=== PATIENT | male | born 1975 | race Hispanic/Latino ===

== ENCOUNTER 2021-05-31 05:07 | Emergency (ER) | payer OTHER ==
[~2021-05-31] VITALS: Ht 180.3 cm; Wt 81.6 kg
[2021-05-31 05:29] LABS: BASOPHILS % (AUTO) 0.3 % (0.0-5.0); HEMATOCRIT 52.4 % (42-54); MEAN CORPUSCULAR HEMOGLOBIN 29.8 pg (27.0-33.0); MEAN CORPUSCULAR HGB CONC 33.4 g/dL (32.0-36.0); MEAN CORPUSCULAR VOLUME 89.1 fL (79-99); MONOCYTES % (AUTO) 9.6 % (3.0-13.0); NEUTROPHILS % (AUTO) 72.6 % (40.0-77.0); PLATELET COUNT (AUTO) 334 K/uL (130-400); RED BLOOD CELL COUNT(AUTO) 5.88 MIL/uL (4.50-6.20); RED CELL DISTRIBUTION WIDTH 11.9 % (11.0-15.5); WHITE BLOOD COUNT (AUTO) 10.7 K/uL (4.8-10.8)
[2021-05-31 05:40] LABS: CREATININE 1.1 mg/dL (0.5-1.5); POTASSIUM 3.9 mmol/L (3.5-5.1)
[2021-05-31 05:44] LABS: ALBUMIN 3.4 g/dL (3.5-5.0); BILIRUBIN,TOTAL 0.2 mg/dL (0.2-1.0); TOTAL PROTEIN, SERUM 7.7 g/dL (6.0-8.3)
[2021-05-31] MEDS ORDERED: ONDANSETRON 4MG INJ ONE (05:57)
[2021-05-31] MEDS ORDERED: FAMOTIDINE 20MG VIAL IV ONE ×2 (05:57→06:00)
[2021-05-31] MEDS ORDERED: MORPHINE 2 MG SYG ONE (05:57)
[2021-05-31] MEDS ORDERED: 0.9%NACL 1000ML 1,000 ML IV ONE ×2 (05:58→06:40)
[2021-05-31] MEDS ORDERED: ONDANSETRON 4MG INJ IVP ONE (06:00)
[2021-05-31] MEDS ORDERED: MORPHINE 2 MG SYG IVP ONE (06:00)
[2021-05-31] MEDS ORDERED: METOCLOPRAMIDE 10 MG/2 ML VIAL ONE (06:39)
[2021-05-31] MEDS ORDERED: ONDA4TAB10 PO (07:48)
[2021-05-31 08:35] VITALS: BP 123/89
[2021-05-31] MEDS ORDERED: L.AC1CAP6 PO (15:21)
[2021-05-31] MEDS ORDERED: DICY20TA2 PO (15:21)
[2021-05-31] MEDS ORDERED: FAMO-136 PO (15:21)
== END 2021-05-31 08:36 | disposition home or self-care (01) ==
LOC: EDH 05:07
DX: K52.9 Noninfective gastroenteritis and colitis, unspecified (principal); E86.9 Volume depletion, unspecified; E11.9 Type 2 diabetes mellitus without complications; E78.00 Pure hypercholesterolemia, unspecified; I10 Essential (primary) hypertension
CPT/HCPCS: 36415; 76705; 80053; 83690; 85025; 96361; 96374; 96375; 99285; J2405; J2765; J3490; J7030 ×2

== ENCOUNTER 2021-05-31 13:57 | Emergency (ER) | payer OTHER ==
[~2021-05-31] VITALS: Ht 180.3 cm; Wt 81.6 kg
[~2021-05-31 13:57] MED LIST: ONDA4TAB10 PO
[2021-05-31] MEDS ORDERED: PANTOPRAZOLE 40 MG/VIAL IVP ONE (14:30)
[2021-05-31] MEDS ORDERED: MORPHINE 4 MG SYG IVP ONE (14:30)
[2021-05-31] MEDS ORDERED: ONDANSETRON 4MG INJ IVP ONE (14:30)
[2021-05-31] MEDS ORDERED: KETOROLAC 15MG/ML VIAL (15MG/ML) IV ONE (14:30)
[2021-05-31] MEDS ORDERED: 0.9%NACL 1000ML 1,000 ML IV ONE (14:30)
[2021-05-31] MEDS ORDERED: IOHEXOL-350 75 ML VIAL IV ONE (14:31)
[2021-05-31] MEDS ORDERED: L.AC1CAP6 PO (15:21)
[2021-05-31] MEDS ORDERED: DICY20TA2 PO (15:21)
[2021-05-31] MEDS ORDERED: LIDOCAINE HCL 2% VISCOUS 15 ML UDCUP ONE (15:21)
[2021-05-31] MEDS ORDERED: FAMO-136 PO (15:21)
[2021-05-31] MEDS ORDERED: MAG/ALUM/SIMETH 30 ML UDCUP ONE (15:21)
[2021-05-31 15:24] VITALS: BP 150/109
[2021-05-31] MEDS ORDERED: MAG/ALUM/SIMETH 30 ML UDCUP PO ONE (15:30)
== END 2021-05-31 15:39 | disposition home or self-care (01) ==
LOC: EDH 13:57
DX: K52.9 Noninfective gastroenteritis and colitis, unspecified (principal); E11.9 Type 2 diabetes mellitus without complications; E78.00 Pure hypercholesterolemia, unspecified; I10 Essential (primary) hypertension; Z79.1 Long term (current) use of non-steroidal anti-inflammatories (NSAID)
CPT/HCPCS: 74177; 96374; 96375; 99285; C9113; J1885; J2270; J2405; J7030; Q9967

== ENCOUNTER 2021-06-02 10:17 | Inpatient (IN) | payer OTHER ==
[~2021-06-02] VITALS: Ht 180.3 cm; Wt 81.9 kg
[~2021-06-02 10:17] MED LIST changes: +DICY20TA2 PO; +FAMO-136 PO; +L.AC1CAP6 PO
[2021-06-02] MEDS ORDERED: ONDANSETRON 4MG INJ IVP ONE ×2 (10:30→14:00)
[2021-06-02] MEDS ORDERED: LACTATED RINGERS 1000ML 1,000 ML IV ONE ×2 (10:30→10:38)
[2021-06-02] MEDS ORDERED: PANTOPRAZOLE 40 MG/VIAL IVP ONE ×2 (10:30→14:30)
[2021-06-02 10:38] LABS: BASOPHILS % (AUTO) 0.6 % (0.0-5.0); HEMATOCRIT 47.2 % (42-54); LYMPHOCYTES % (AUTO) 7.4 % (21.0-51.0); MEAN CORPUSCULAR HEMOGLOBIN 30.8 pg (27.0-33.0); MEAN CORPUSCULAR HGB CONC 34.5 g/dL (32.0-36.0); MEAN CORPUSCULAR VOLUME 89.2 fL (79-99); MONOCYTES % (AUTO) 8.8 % (3.0-13.0); NEUTROPHILS % (AUTO) 81.5 % (40.0-77.0); PLATELET COUNT (AUTO) 261 K/uL (130-400); RED BLOOD CELL COUNT(AUTO) 5.29 MIL/uL (4.50-6.20); RED CELL DISTRIBUTION WIDTH 11.9 % (11.0-15.5); WHITE BLOOD COUNT (AUTO) 21.8 K/uL (4.8-10.8)
[2021-06-02] MEDS ORDERED: PANTOPRAZOLE 40 MG/VIAL ONE (10:38)
[2021-06-02] MEDS ORDERED: ONDANSETRON 4MG INJ ONE (10:38)
[2021-06-02] MEDS ORDERED: KETOROLAC 30MG VIAL (30MG/ML) ONE (10:51)
[2021-06-02 10:54] LABS: CREATININE 0.8 mg/dL (0.5-1.5); POTASSIUM 3.5 mmol/L (3.5-5.1)
[2021-06-02 10:58] LABS: ALBUMIN 2.8 g/dL (3.5-5.0); BILIRUBIN,TOTAL 0.5 mg/dL (0.2-1.0); TOTAL PROTEIN, SERUM 6.8 g/dL (6.0-8.3)
[2021-06-02] MEDS ORDERED: KETOROLAC 30MG VIAL (30MG/ML) IVP ONE (11:00)
[2021-06-02] MEDS ORDERED: CEFTRIAXONE 2GM VIAL IVP ONE (12:30)
[2021-06-02] MEDS ORDERED: IOHEXOL-350 75 ML VIAL IV ONE (12:41)
[2021-06-02] MEDS ORDERED: MORPHINE 2 MG SYG IVP ONE (14:00)
[2021-06-02 14:25] LABS: APPEARANCE,URINE Clear (CLEAR); BILIRUBIN,URINE Negative (NEGATIVE); COLOR,URINE Yellow (YELLOW); GLUCOSE, URINE (UA) 500 mg/dL (NEGATIVE); KETONES,URINE >=80 mg/dL (NEGATIVE); LEUKOCYTE ESTERASE ,URINE Negative (NEGATIVE); NITRATE,URINE Negative (NEGATIVE); OCCULT BLOOD,URINE Negative (NEGATIVE); PROTEIN,URINE Trace mg/dL (NEGATIVE); UROBILINOGEN,URINE 0.2 mg/dL (0.2-1.0)
[2021-06-02 14:33] LABS: AMPHET/METH SCREEN,URINE NEGATIVE (NEGATIVE); BARBITURATE SCREEN, URINE NEGATIVE (NEGATIVE); BENZODIAZEPINES SCREEN,URINE NEGATIVE (NEGATIVE); CANNABINOID SCREEN,URINE NEGATIVE (NEGATIVE); COCAINE SCREEN,URINE POSITIVE (NEGATIVE); OPIATE SCREEN,URINE NEGATIVE (NEGATIVE); PHENCYCLIDINE SCREEN,URINE NEGATIVE (NEGATIVE)
[2021-06-02 14:43] LABS: BACTERIA,URINE Rare /HPF (None Seen); COARSE GRANULAR CASTS,URINE 0-2 /LPF (None Seen); MUCUS,URINE Rare LPF (None Seen); RBC,URINE 0-1 /HPF (0-1); SQUAMOUS EPITHELIAL CELL,UR Rare /HPF (0-2); WBC,URINE 0-1 /HPF (0-1)
[2021-06-02 15:10] LABS: HEMOGLOBIN A1C 7.7 % (4.0-6.0)
[2021-06-02] MEDS: HYDROMORPHONE 0.5 MG SYG (0.5MG/0.5ML) IVP PRN (15:52)
[2021-06-02] MEDS: LACTATED RINGERS 1000ML 1,000 ML IV SCH (15:52)
[2021-06-02] MEDS: ZOSYN 3.375GM +NS 50ML IV SCH ×2 (15:52→22:30)
[2021-06-02] MEDS ORDERED: HYDRALAZINE 20MG/ML VIAL ONE (16:28)
[2021-06-02] MEDS ORDERED: HYDRALAZINE 20MG/ML VIAL IV PRN ×2 (16:30)
[2021-06-02] MEDS ORDERED: [UNRECOGNIZED DRUG - REMARK] MISC SCH (16:30)
[2021-06-02] MEDS ORDERED: KETOROLAC 15MG/ML VIAL (15MG/ML) ONE (16:42)
[2021-06-02] MEDS: INSULIN HUMULIN R 100 UNIT/ML 3ML SQ SCH (19:00)
[2021-06-02 19:39] LABS: CREATININE 0.7 mg/dL (0.5-1.5); MAGNESIUM 2.2 mg/dL (1.80-2.40); POTASSIUM 3.1 mmol/L (3.5-5.1)
[2021-06-02] MEDS: PANTOPRAZOLE 40 MG/VIAL IVP SCH (20:49)
[2021-06-02] MEDS: KETOROLAC 15MG/ML VIAL (15MG/ML) IV PRN (22:07)
[2021-06-03] VITALS (8 sets, daily range): BP systolic 110–180; BP diastolic 73–118
[2021-06-03] MEDS: LACTATED RINGERS 1000ML 1,000 ML IV SCH ×3 (00:30→20:30)
[2021-06-03] MEDS ORDERED: 0.9%NACL 50ML 50 ML IV ONE (00:34)
[2021-06-03] MEDS: ZOSYN 3.375GM +NS 50ML IV SCH ×2 (00:47→09:18)
[2021-06-03] MEDS: INSULIN HUMULIN R 100 UNIT/ML 3ML SQ SCH ×5 (01:00→23:42)
[2021-06-03] MEDS ORDERED: HYDRALAZINE 20MG/ML VIAL IV ONE ×2 (01:30→02:30)
[2021-06-03] MEDS: HYDROMORPHONE 0.5 MG SYG (0.5MG/0.5ML) IVP PRN ×4 (02:01→23:47)
[2021-06-03] MEDS: KETOROLAC 15MG/ML VIAL (15MG/ML) IV PRN ×4 (03:54→19:37)
[2021-06-03] MEDS: POTASSIUM CHLORIDE 20MEQ/100ML 100 ML IV PRN ×3 (04:32→16:24)
[2021-06-03 06:22] LABS: BASOPHILS % (AUTO) 0.5 % (0.0-5.0); EOSINOPHILS % (AUTO) 0.9 % (0.0-8.0); HEMATOCRIT 42.5 % (42-54); LYMPHOCYTES % (AUTO) 13.5 % (21.0-51.0); MEAN CORPUSCULAR HGB CONC 34.1 g/dL (32.0-36.0); MONOCYTES % (AUTO) 7.6 % (3.0-13.0); NEUTROPHILS % (AUTO) 75.4 % (40.0-77.0); PLATELET COUNT (AUTO) 253 K/uL (130-400); RED BLOOD CELL COUNT(AUTO) 4.83 MIL/uL (4.50-6.20); WHITE BLOOD COUNT (AUTO) 23.9 K/uL (4.8-10.8)
[2021-06-03 06:35] LABS: ALBUMIN 2.1 g/dL (3.5-5.0); BILIRUBIN,TOTAL 0.5 mg/dL (0.2-1.0); CREATININE 0.6 mg/dL (0.5-1.5); MAGNESIUM 2.2 mg/dL (1.80-2.40); POTASSIUM 3.3 mmol/L (3.5-5.1); TOTAL PROTEIN, SERUM 6.3 g/dL (6.0-8.3)
[2021-06-03] MEDS ORDERED: THIAMINE HCL 100 MG/ML 2ML VIAL IVP SCH (09:00)
[2021-06-03] MEDS: THIAMINE HCL 100 MG/ML 2ML VIAL IVP SCH (09:18)
[2021-06-03] MEDS: PANTOPRAZOLE 40 MG/VIAL IVP SCH ×2 (09:19→19:30)
[2021-06-03] MEDS: METRONIDAZOLE 500MG/100ML BAG 100 ML IVPB SCH ×2 (16:23→19:30)
[2021-06-03] MEDS: ENALAPRILAT DIHYDRATE 1.25MG/ML 1ML VIAL IV PRN ×2 (18:14→23:47)
[2021-06-04] MEDS: KETOROLAC 15MG/ML VIAL (15MG/ML) IV PRN ×4 (01:32→15:44)
[2021-06-04 03:25] VITALS: BP 144/96
[2021-06-04] MEDS: METRONIDAZOLE 500MG/100ML BAG 100 ML IVPB SCH ×2 (05:36→13:16)
[2021-06-04] MEDS: LACTATED RINGERS 1000ML 1,000 ML IV SCH ×3 (05:36→21:57)
[2021-06-04] MEDS: INSULIN HUMULIN R 100 UNIT/ML 3ML SQ SCH ×3 (05:53→18:17)
[2021-06-04 06:45] LABS: BASOPHILS % (AUTO) 0.5 % (0.0-5.0); EOSINOPHILS % (AUTO) 1.5 % (0.0-8.0); HEMATOCRIT 41.3 % (42-54); LYMPHOCYTES % (AUTO) 15.1 % (21.0-51.0); MEAN CORPUSCULAR HGB CONC 33.2 g/dL (32.0-36.0); MEAN CORPUSCULAR VOLUME 90.6 fL (79-99); MONOCYTES % (AUTO) 7.2 % (3.0-13.0); NEUTROPHILS % (AUTO) 73.3 % (40.0-77.0); PLATELET COUNT (AUTO) 309 K/uL (130-400); RED BLOOD CELL COUNT(AUTO) 4.56 MIL/uL (4.50-6.20); RED CELL DISTRIBUTION WIDTH 12.2 % (11.0-15.5); WHITE BLOOD COUNT (AUTO) 22.3 K/uL (4.8-10.8)
[2021-06-04 06:57] LABS: ALBUMIN 2.1 g/dL (3.5-5.0); BILIRUBIN,TOTAL 0.3 mg/dL (0.2-1.0); CREATININE 0.6 mg/dL (0.5-1.5); MAGNESIUM 2.5 mg/dL (1.80-2.40); POTASSIUM 3.1 mmol/L (3.5-5.1); TOTAL PROTEIN, SERUM 6.4 g/dL (6.0-8.3)
[2021-06-04] MEDS ORDERED: LIDOCAINE HCL-MPF 1% 2ML VIAL ONE (08:26)
[2021-06-04] MEDS ORDERED: POTASSIUM CHLORIDE 20MEQ/100ML 100 ML IV PRN (08:30)
[2021-06-04] MEDS: PANTOPRAZOLE 40 MG/VIAL IVP SCH ×2 (08:34→21:57)
[2021-06-04] MEDS: THIAMINE HCL 100 MG/ML 2ML VIAL IVP SCH (08:35)
[2021-06-04] MEDS: POTASSIUM CHLORIDE 20MEQ/100ML 100 ML IV PRN ×2 (08:39→13:16)
[2021-06-04 09:54] VITALS: BP 155/111
[2021-06-04 12:00] VITALS: BP 151/109
[2021-06-04] MEDS: LIDOCAINE HCL-MPF 1% 2ML VIAL IV PRN (13:15)
[2021-06-04 16:00] VITALS: BP 191/118
[2021-06-04] MEDS ORDERED: MORPHINE 2 MG SYG ONE (16:28)
[2021-06-04] MEDS ORDERED: MORPHINE 2 MG SYG IV ONE (17:00)
[2021-06-04] MEDS ORDERED: IOHEXOL 350 MG/ML 100ML INFUS..BTL IV ONE (18:25)
[2021-06-04] MEDS ORDERED: KETOROLAC 30MG VIAL (30MG/ML) IV ONE (18:30)
[2021-06-04] MEDS ORDERED: HYDROMORPHONE 0.5 MG SYG (0.5MG/0.5ML) IVP ONE (18:30)
[2021-06-04] MEDS ORDERED: KETOROLAC 15MG/ML VIAL (15MG/ML) IV ONE (19:00)
[2021-06-04 19:48] VITALS: BP 196/123
[2021-06-04] MEDS: HYDRALAZINE 25MG TABLET PO SCH (21:00)
[2021-06-04] MEDS: ENALAPRILAT DIHYDRATE 1.25MG/ML 1ML VIAL IV PRN (21:57)
[2021-06-04] MEDS: MORPHINE 2 MG SYG IVP PRN (21:57)
[2021-06-04] MEDS: ONDANSETRON 4MG INJ IVP PRN (21:58)
[2021-06-04] MEDS ORDERED: METRONIDAZOLE 500 MG TABLET PO SCH (22:00)
[2021-06-04 23:34] VITALS: BP 159/107
[2021-06-05] MEDS: INSULIN HUMULIN R 100 UNIT/ML 3ML SQ SCH ×4 (00:05→17:12)
[2021-06-05] MEDS ORDERED: METRONIDAZOLE 500MG/100ML BAG 100 ML ONE (03:33)
[2021-06-05] MEDS: KETOROLAC 15MG/ML VIAL (15MG/ML) IV PRN ×3 (03:40→16:18)
[2021-06-05 03:47] VITALS: BP 153/96
[2021-06-05 04:15] LABS: BASOPHILS % (AUTO) 0.5 % (0.0-5.0); EOSINOPHILS % (AUTO) 1.6 % (0.0-8.0); HEMATOCRIT 38.5 % (42-54); LYMPHOCYTES % (AUTO) 13.9 % (21.0-51.0); MEAN CORPUSCULAR HEMOGLOBIN 30.5 pg (27.0-33.0); MEAN CORPUSCULAR VOLUME 89.5 fL (79-99); MONOCYTES % (AUTO) 8.1 % (3.0-13.0); PLATELET COUNT (AUTO) 330 K/uL (130-400); RED CELL DISTRIBUTION WIDTH 12.2 % (11.0-15.5); WHITE BLOOD COUNT (AUTO) 17.1 K/uL (4.8-10.8)
[2021-06-05] MEDS: METRONIDAZOLE 500MG/100ML BAG 100 ML IVPB SCH ×3 (04:23→21:19)
[2021-06-05 04:32] LABS: ALBUMIN 2.1 g/dL (3.5-5.0); BILIRUBIN,TOTAL 0.3 mg/dL (0.2-1.0); CREATININE 0.7 mg/dL (0.5-1.5); MAGNESIUM 2.2 mg/dL (1.80-2.40); TOTAL PROTEIN, SERUM 6.4 g/dL (6.0-8.3)
[2021-06-05] MEDS: LIDOCAINE HCL-MPF 1% 2ML VIAL IV PRN ×2 (06:31→20:43)
[2021-06-05] MEDS: POTASSIUM CHLORIDE 20MEQ/100ML 100 ML IV PRN ×2 (06:32→20:43)
[2021-06-05 07:30] VITALS: BP 147/84
[2021-06-05] MEDS: LEVOFLOXACIN 500 MG/D5W 100 ML 100 ML IV SCH (10:22)
[2021-06-05] MEDS: PANTOPRAZOLE 40 MG/VIAL IVP SCH ×2 (10:23→20:41)
[2021-06-05] MEDS: THIAMINE HCL 100 MG/ML 2ML VIAL IVP SCH (10:23)
[2021-06-05] MEDS: LACTATED RINGERS 1000ML 1,000 ML IV SCH ×2 (10:23→16:42)
[2021-06-05] MEDS: HYDRALAZINE 25MG TABLET PO SCH ×3 (10:24→20:44)
[2021-06-05 11:00] VITALS: BP 167/110
[2021-06-05] MEDS: MORPHINE 2 MG SYG IVP PRN ×2 (13:03→20:42)
[2021-06-05] MEDS ORDERED: METR-172 PO (13:04)
[2021-06-05] MEDS ORDERED: LEVO500T90 PO (13:04)
[2021-06-05 16:00] VITALS: BP 194/126
[2021-06-05] MEDS: ENALAPRILAT DIHYDRATE 1.25MG/ML 1ML VIAL IV PRN (17:06)
[2021-06-05 20:08] VITALS: BP 175/111
[2021-06-05] MEDS: ONDANSETRON 4MG INJ IVP PRN (20:41)
[2021-06-05 22:20] VITALS: BP 152/102
[2021-06-06 00:08] VITALS: BP 162/92
[2021-06-06] MEDS: INSULIN HUMULIN R 100 UNIT/ML 3ML SQ SCH ×4 (00:20→16:10)
[2021-06-06] MEDS: LACTATED RINGERS 1000ML 1,000 ML IV SCH ×2 (00:20→08:52)
[2021-06-06 03:48] LABS: HEMATOCRIT 36.1 % (42-54); MEAN CORPUSCULAR HEMOGLOBIN 30.4 pg (27.0-33.0); MEAN CORPUSCULAR HGB CONC 34.1 g/dL (32.0-36.0); MEAN CORPUSCULAR VOLUME 89.4 fL (79-99); RED BLOOD CELL COUNT(AUTO) 4.04 MIL/uL (4.50-6.20); RED CELL DISTRIBUTION WIDTH 12.1 % (11.0-15.5); WHITE BLOOD COUNT (AUTO) 9.7 K/uL (4.8-10.8)
[2021-06-06 04:04] LABS: BILIRUBIN,TOTAL 0.2 mg/dL (0.2-1.0); CREATININE 0.7 mg/dL (0.5-1.5); POTASSIUM 3.2 mmol/L (3.5-5.1); TOTAL PROTEIN, SERUM 6.1 g/dL (6.0-8.3)
[2021-06-06 04:08] VITALS: BP 149/95
[2021-06-06] MEDS: METRONIDAZOLE 500MG/100ML BAG 100 ML IVPB SCH ×2 (05:10→14:03)
[2021-06-06] MEDS: POTASSIUM CHLORIDE 20MEQ/100ML 100 ML IV PRN (05:16)
[2021-06-06] MEDS: LIDOCAINE HCL-MPF 1% 2ML VIAL IV PRN (05:16)
[2021-06-06] MEDS: KETOROLAC 15MG/ML VIAL (15MG/ML) IV PRN ×2 (05:24→16:02)
[2021-06-06 08:00] VITALS: BP 147/101
[2021-06-06] MEDS: PANTOPRAZOLE 40 MG/VIAL IVP SCH (08:48)
[2021-06-06] MEDS: THIAMINE HCL 100 MG/ML 2ML VIAL IVP SCH (08:49)
[2021-06-06] MEDS: HYDRALAZINE 25MG TABLET PO SCH ×2 (08:50→14:04)
[2021-06-06] MEDS: LEVOFLOXACIN 500 MG/D5W 100 ML 100 ML IV SCH (08:50)
[2021-06-06] MEDS: MORPHINE 2 MG SYG IVP PRN (08:59)
[2021-06-06 12:03] VITALS: BP 160/104
[2021-06-06 16:00] VITALS: BP 174/115
== END 2021-06-06 17:45 | disposition home or self-care (01) | DRG 389 ==
LOC: EDH 10:17 → EDHIP 10:18 → 3AH 16:06 → EDHIP 19:33 → 4CH 06-03 01:19
PROVIDERS: ADMIT Internal Medicine; ATTEND Internal Medicine
PROC: 0D9670Z Drainage of Stomach with Drainage Device, Via Natural or Artificial Opening (ICD-10-PCS; principal; 2021-06-02)
DX: K56.609 Unspecified intestinal obstruction, unspecified as to partial versus complete obstruction (principal); E87.1 Hypo-osmolality and hyponatremia; K52.9 Noninfective gastroenteritis and colitis, unspecified; E87.6 Hypokalemia; E87.8 Other disorders of electrolyte and fluid balance, not elsewhere classified; Z20.822 Contact with and (suspected) exposure to COVID-19; I16.0 Hypertensive urgency; I10 Essential (primary) hypertension; E86.1 Hypovolemia; E78.5 Hyperlipidemia, unspecified; E11.9 Type 2 diabetes mellitus without complications; E78.00 Pure hypercholesterolemia, unspecified; F14.10 Cocaine abuse, uncomplicated
CPT/HCPCS: 36415; 74018; 74021; 74174; 74177; 80048; 80053; 80305; 81001; 82150; 82948; 83036; 83605; 83630; 83690; 83735; 84132; 84145; 84443; 84484; 85025; 85027; 85651; 86140; 87040; 87046; 87177; 87507; 87635; 87804; 93005; C9113; G0378; J0360; J0696; J1170; J1885; J1956; J2405; J2543; J3411; J3480; J3490; J7120; Q9967

== ENCOUNTER 2023-03-25 13:08 | Emergency (ER) | payer OTHER ==
[~2023-03-25] VITALS: Ht 177.8 cm; Wt 82.6 kg
[~2023-03-25 13:08] MED LIST changes: +LEVO-70 PO; +METR-172 PO
[2023-03-25 13:54] LABS: BASOPHILS # (AUTO) 0.03 K/uL (0.00-0.20); BASOPHILS % (AUTO) 0.3 % (0.0-5.0); EOSINOPHILS # (AUTO) 0.28 K/uL (0.00-0.70); HEMATOCRIT 51.6 % (42-54); IMMATURE GRANULOCYTE ABSOLUTE 0.03 K/uL (0-1); LYMPHOCYTES # (AUTO) 1.7 K/uL (1.0-4.8); MEAN CORPUSCULAR HEMOGLOBIN 29.7 pg (27.0-33.0); MEAN CORPUSCULAR HGB CONC 34.3 g/dL (32.0-36.0); MEAN CORPUSCULAR VOLUME 86.6 fL (79-99); MONOCYTES # (AUTO) 0.7 K/uL (0.1-1.0); NEUTROPHILS # (AUTO) 6.5 K/uL (1.8-7.7); NEUTROPHILS % (AUTO) 70.4 % (40.0-77.0); PLATELET COUNT (AUTO) 278 K/uL (130-400); RED BLOOD CELL COUNT(AUTO) 5.96 MIL/uL (4.50-6.20); RED CELL DISTRIBUTION WIDTH 11.8 % (11.0-15.5); WHITE BLOOD COUNT (AUTO) 9.2 K/uL (4.8-10.8)
[2023-03-25 14:03] LABS: POTASSIUM 3.7 mmol/L (3.5-5.1)
[2023-03-25 14:08] LABS: ALBUMIN 4.1 g/dL (3.5-5.0); BILIRUBIN,TOTAL 0.4 mg/dL (0.2-1.0); MAGNESIUM 1.6 mg/dL (1.80-2.40); TOTAL PROTEIN, SERUM 8.4 g/dL (6.0-8.3)
[2023-03-25 14:24] LABS: B-TYPE NATRIURETIC PEPTIDE < 5 pg/mL (0-100)
[2023-03-25 15:30] LABS: RAPID GROUP A STREP negative (NEGATIVE)
[2023-03-25 15:32] LABS: SARS-CoV-2, RNA, NAAT NEGATIVE SARS CoV-2 (NEGATIVE)
[2023-03-25 15:40] LABS: INFLUENZA TYPE A Negative For Type A (NEGATIVE); INFLUENZA TYPE B Negative For Type B (NEGATIVE)
[2023-03-25] MEDS ORDERED: MAGN300C PO (16:45)
[2023-03-25] MEDS ORDERED: FUROSEMIDE 80 MG TABLET PO ONE (17:00)
[2023-03-25] MEDS ORDERED: FUROSEMIDE 40 MG TABLET ONE (17:01)
[2023-03-25 18:07] VITALS: BP 159/110; PULSE 95; RESP 18; O2SAT 99
== END 2023-03-25 18:08 | disposition home or self-care (01) ==
LOC: EDH 13:08
DX: R07.89 Other chest pain (principal); I10 Essential (primary) hypertension; E83.42 Hypomagnesemia; E11.9 Type 2 diabetes mellitus without complications; E78.00 Pure hypercholesterolemia, unspecified; Z20.822 Contact with and (suspected) exposure to COVID-19
CPT/HCPCS: 36415; 71045; 80053; 83735; 83880; 84484; 85025; 87635; 87804; 87880; 93005